=== PATIENT | male | born 1995 | race Caucasian/White ===

== ENCOUNTER 2020-10-02 09:05 | Emergency (ER) | payer SELFPAY ==
[~2020-10-02] VITALS: Ht 180.3 cm; Wt 76.0 kg
[2020-10-02 09:11] VITALS: BP 141/84
[2020-10-02] MEDS ORDERED: LORazepam 2 MG/ML, 1ML ONE (09:47)
--- NOTE | 2020-10-02 09:56 | NUR ---
PT TO XRAY
[2020-10-02] MEDS ORDERED: SODIUM CHLORIDE FLUSH 10ML SYR IVF ONE (10:00)
[2020-10-02] MEDS ORDERED: SODIUM CHLORIDE 0.9% 1,000 ML IV ONE (10:00)
[2020-10-02] MEDS ORDERED: LORazepam 2 MG/ML, 1ML IVPush ONE (10:00)
[2020-10-02] MEDS ORDERED: SODIUM CHLORIDE 0.9% 1,000ML IVBOLUS ONE (10:00)
--- NOTE | 2020-10-02 10:16 | NUR ---
PT REFUSED IV, MEDS, AND BLOOD DRAW'S AND THEN GOT UPSET AND SAID HE WAS LEAVING. CAME BACK TO ROOM FOR AMA PAPERWORK AND PT GONE. PROVIDER NOTIFIED.
== END 2020-10-02 10:19 | disposition left against medical advice (07) ==
LOC: ED 10:13
DX: F15.10 Other stimulant abuse, uncomplicated (principal); F41.1 Generalized anxiety disorder; I10 Essential (primary) hypertension; R00.0 Tachycardia, unspecified; F17.200 Nicotine dependence, unspecified, uncomplicated
CPT/HCPCS: 74022; 93005; 99283